=== PATIENT | female | born 1995 | race Caucasian/White ===

== ENCOUNTER 2017-08-31 15:29 | Emergency (ER) | payer BC ==
[~2017-08-31] VITALS: Ht 160 cm; Wt 68.0 kg
[~2017-08-31 15:29] MED LIST: CYCL5TAB PO; IBUP600T16 PO
[2017-08-31 16:04] LABS: BACTERIA,URINE 0 /HPF (0-FEW); BILIRUBIN,URINE NEG (NEG); CLARITY,URINE CLEAR; COLOR,URINE STRAW; GLUCOSE,URINE NEG (NEG); NITRITE,URINE NEG (NEG); UROBILINOGEN,URINE 0.2 mg/dL (0.2 mg/dL); WBC,URINE OCC /HPF (0-4)
--- NOTE | 2017-08-31 16:08 | PHYS DOC ---
Past History Past Medical History: No Pertinent History Past Surgical History: No Surgical History Smoking: Non-smoker Alcohol Use: None Drug Use: None Adult General Chief Complaint Chief Complaint: VAGINAL BLEEDING HPI HPI Patient is a 21-year-old who is approximately 6 weeks presents with vaginal bleeding this morning. She also is having some low back and low abdominal discomfort. She states they bleeding intensified after intercourse this morning. She denies any fever chills or sweats. She is unsure what her blood type is. She states she has not had an ultrasound as of yet.[] Review of Systems Review of Systems Constitutional: Denies fever or chills [] Eyes: Denies change in visual acuity, redness, or eye pain [] HENT: Denies nasal congestion or sore throat [] Respiratory: Denies cough or shortness of breath [] Cardiovascular: No additional information not addressed in HPI [] GI: Per history of present illness[] : Vaginal bleeding[] Musculoskeletal: Denies back pain or joint pain [] Integument: Denies rash or skin lesions [] Neurologic: Denies headache, focal weakness or sensory changes [] Endocrine: Denies polyuria or polydipsia [] All other systems were reviewed and found to be within normal limits, except as documented in this note. Allergies Allergies Allergies Coded Allergies Type Severity Reaction Last Updated Verified No Known Allergies Allergy Unknown 07/07/14 No Physical Exam Physical Exam Constitutional: Well developed, well nourished, no acute distress, non-toxic appearance. [] HENT: Normocephalic, atraumatic, bilateral external ears normal, oropharynx moist, no oral exudates, nose normal. [] Eyes: PERRLA, EOMI, conjunctiva normal, no discharge. [] Neck: Normal range of motion, no tenderness, supple, no stridor. [] Cardiovascular:Heart rate regular rhythm, no murmur [] Lungs & Thorax: Bilateral breath sounds clear to auscultation [] Abdomen: Bowel sounds normal, soft, no tenderness, no masses, no pulsatile masses. [] Skin: Warm, dry, no erythema, no rash. [] Back: No tenderness, no CVA tenderness. [] Extremities: No tenderness, no cyanosis, no clubbing, ROM intact, no edema. [] Neurologic: Alert and oriented X 3, normal motor function, normal sensory function, no focal deficits noted. [] Psychologic: Affect normal, judgement normal, mood normal. [] Current Patient Data Lab Results Laboratory Tests Test 08/31/17 14:57 08/31/17 15:40 POC Urine HCG, Qualitative hcg positive (Negative) Urine Collection Type Unknown Urine Color Straw Urine Clarity Clear Urine pH 7.0 Urine Specific [place] 1.010 Urine Protein Neg (NEG-TRACE) Urine Glucose (UA) Neg mg/dL (NEG) Urine Ketones (Stick) Neg mg/dL (NEG) Urine Blood Mod (NEG) Urine Nitrite Neg (NEG) Urine Bilirubin Neg (NEG) Urine Urobilinogen Dipstick 0.2 mg/dL (0.2 mg/dL) Urine Leukocyte Esterase Neg (NEG) Urine RBC 6-10 /HPF (0-2) Urine WBC Occ /HPF (0-4) Urine Squamous Epithelial Cells None /LPF Urine Bacteria 0 /HPF (0-FEW) Urine Test Pending EKG EKG [] Radiology/Procedures Radiology/Procedures FINDINGS: The uterus measures 9.0 x 6.0 x 4.2 cm. There is a circumscribed gestational sac within the fundus of the uterus or within the fundal endometrium with the gestational sac diameter of 0.52 cm compatible with a gestational age of 5 weeks 2 days. There is no suspicious uterine mass. Endometrium is within normal limits. Right ovary measures 1.5 by site right ovary measures 2.2 x 1.5 x 3.7 cm. Left ovary measures 2.2 x 2.2 x 2.2 cm. Arterial and venous waveform identified bilaterally. Small volume simple free fluid is identified within the pelvis. IMPRESSION: 1. A gestational sac is identified within the uterus without yolk sac or embryo. Mean sac diameter is compatible with a gestational age of 5 weeks and 2 days. Findings favor early intrauterine . However, short-term follow-up beta hCG is recommended to assess for failure given the provided beta hCG value. Course & Med Decision Making Course & Med Decision Making Pertinent Labs and Imaging studies reviewed. (See chart for details) [ED course: Evaluation reveals a 21-year-old proximal like 5 or 6 weeks with a quantitative hCG of only 136. She did have bleeding today. I talked with the patient her mother and her significant other about what this means. I let them know that I was very concerned that this was a miscarriage. However we would do the ultrasound I let them know that we would likely not see much. She hasn't appointment with an neurophysiologist as scheduled and will need to follow-up as scheduled there for recheck. Also let her know that she would need to return should the pain intensified. I will be checking this case out to Dr. Trejo at 1700. 18:45: Ultrasound results are reviewed. The patient has a gestational sac in the uterus. There is no pole present. HCG is 16. Plan is for discharge home. The patient is agreeable. All of her results are reviewed and all of her questions are answered prior to discharge. She is advised to use pelvic rest. She will contact her primary OB doctor tomorrow morning to schedule a repeat hCG level in 4 days. During the interim, she is advised to come back to the ER for any lightheadedness, dizziness, bleeding that soaks more than 1 pad per hour for 3 consecutive hours or fever. Patient verbalizes understanding of these return precautions. Dragon Disclaimer Dragon Disclaimer This electronic medical record was generated, in whole or in part, using a voice recognition dictation system. Departure Departure: Referrals: ARIELA FRAGOSO MD (PCP) GERMAN BONILLA DO Aug 31, 2017 16:08 LEIGHTON TREJO DO Aug 31, 2017 18:46
[2017-08-31 16:10] LABS: U PREG PATIENT POSITIVE (NEG)
[2017-08-31 16:22] LABS: BASO % 1 % (0-3); EOS # 0.2 x10^3/uL (0.0-0.7); EOS % 3 % (0-3); HEMATOCRIT 39.9 % (36.0-47.0); HEMOGLOBIN 13.5 g/dL (12.0-15.5); LYMPH # 1.4 x10^3/uL (1.0-4.8); LYMPH % 19 % (24-48); MEAN CORPUSCULAR HEMOGLOBIN 28 pg (25-35); MEAN CORPUSCULAR HGB CONC 34 g/dL (31-37); MEAN CORPUSCULAR VOLUME 82 fL (79-100); MONO # 0.6 x10^3/uL (0.0-1.1); MONO % 8 % (0-9); NEUT # 5.4 x10^3uL (1.8-7.7); NEUT % 70 % (31-73); PLATELET COUNT 152 x10^3/uL (140-400); RED BLOOD COUNT 4.87 x10^6/uL (3.50-5.40); RED CELL DISTRIBUTION WIDTH 12.9 % (11.5-14.5); WHITE BLOOD COUNT 7.7 x10^3/uL (4.0-11.0)
[2017-08-31 18:25] VITALS: BP 116/72
--- NOTE | 2017-08-31 18:33 | RAD ---
Obstetric pelvic ultrasound 08/31/2017 INDICATION: B HCG 136. Bleeding and cramping. COMPARISON: None available. TECHNIQUE: Transabdominal and transvaginal imaging of the pelvis is performed utilizing grayscale, color Doppler and spectral waveform analysis. FINDINGS: The uterus measures 9.0 x 6.0 x 4.2 cm. There is a circumscribed gestational sac within the fundus of the uterus or within the fundal endometrium with the gestational sac diameter of 0.52 cm compatible with a gestational age of 5 weeks 2 days. There is no suspicious uterine mass. Endometrium is within normal limits. Right ovary measures 1.5 by site right ovary measures 2.2 x 1.5 x 3.7 cm. Left ovary measures 2.2 x 2.2 x 2.2 cm. Arterial and venous waveform identified bilaterally. Small volume simple free fluid is identified within the pelvis. IMPRESSION: 1. A gestational sac is identified within the uterus without yolk sac or embryo. Mean sac diameter is compatible with a gestational age of 5 weeks and 2 days. Findings favor early intrauterine . However, short-term follow-up beta hCG is recommended to assess for failure given the provided beta hCG value. Electronically signed by: Tia Morrow MD (08/31/2017 6:30 PM) [facility]
== END 2017-08-31 18:40 | disposition home or self-care (01) ==
LOC: ER 15:29
DX: O46.91 Antepartum hemorrhage, unspecified, first trimester (principal); Z3A.01 Less than 8 weeks gestation of pregnancy
CPT/HCPCS: 36415; 76801; 76817; 81001; 81025; 84702; 85025; 86900; 86901; 99285-25

== ENCOUNTER 2017-12-04 13:12 | Emergency (ER) | payer BC ==
[~2017-12-04] VITALS: Ht 160 cm; Wt 67.5 kg
[2017-12-04] MEDS ORDERED: IV NORMAL SALINE 1,000ML 1,000 ML IV ONE ×2 (13:45→14:00)
[2017-12-04 13:56] LABS: PREG TEST PT QUAL POSITIVE (NEG)
[2017-12-04 14:04] LABS: ALBUMIN 3.9 g/dL (3.4-5.0); CALCIUM 8.8 mg/dL (8.5-10.1); CREATININE 0.7 mg/dL (0.6-1.0); GFR 105.6; POTASSIUM 3.7 mmol/L (3.5-5.1); TOTAL BILIRUBIN 0.5 mg/dL (0.2-1.0)
--- NOTE | 2017-12-04 14:10 | EKG ---
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
--- NOTE | 2017-12-04 14:20 | PHYS DOC ---
Past History Past Medical History: Asthma, Depression, Other Past Surgical History: Other Smoking: Non-smoker Alcohol Use: None Drug Use: None Adult General Chief Complaint Chief Complaint: POST-OP PROBLEM HPI HPI 22-year-old female who had a D&C today at [facility] outpatient surgery due to loss of heartbeat. She reports this was an intrauterine . She has mild cramping in the lower pelvis and she was at the pharmacy today when she had a syncopal episode. Prior to the syncopal episode, she felt mildly lightheaded and nauseous. She denies any pain. She denies vomiting today. She was able to take oral intake after her surgery. Review of systems is negative for chest pain shortness of breath. Positive for abdominal pain. Negative for headache. All other review of systems is negative unless otherwise noted in history of present illness. ED course: 22-year-old female presenting to the emergency department today with syncope after having a D&C. On arrival the patient is afebrile with a normal heart rate. She is well-appearing on examination. Regular rate and rhythm. Clear lungs bilaterally. Otherwise no signs of DVT in the lower legs. EKG obtained and reviewed by myself shows sinus rhythm with a regular rate. ST segments congruent. No evidence of Brugada, [id number], QT is within normal limits, no signs of hypertrophic obstructive cardiomyopathy. blood work sent. White blood cell count is just above the reference range of normal. Platelets are just below the reference range of normal. Chemistry panel shows mild mild hyperglycemia. test is positive, patient was and this is why the patient needed a D&C. D-dimer is elevated. CT angiogram is negative. Urinalysis not suggestive of infection. Otherwise CAT scan of the abdomen shows endometrial enlargement. Patient is having mild vaginal bleeding. Ultrasound shows heterogenous endometrium compatible with blood products. I spoke with Dr. Lin who is on-call for Dr. Tanner. She is [employer]FORM[employer] STOCK CLERK on-call at [facility] where the patient had surgery. The patient is hemodynamically doing quite well and does not show any signs of shock. Her pain is better she is able to walk in the emergency department without any lightheadedness. TRANSFORMER STOCK CLERK recommends discharge versus observation depending on the patient's preference. I explained the risks and benefits of both to the patient and we used shared should decision making. Patient understands risks and benefits and has medical decision making capacity.The patient has been examined and was not found to have an emergency medical condition. The patient was then discharged home in stable condition to follow up with TRANSFORMER STOCK CLERK tomorrow. They were to return if their symptoms worsened or if they were concerned for any reason. They were also instructed to return to the emergency department if they were unable to get the recommended and appropriate follow-up. [id number] discharge instructions and return precautions were given. Patient's questions were answered to their satisfaction. Patient is comfortable with plan. Review of Systems Review of Systems SEE ABOVE. Current Medications Current Medications Current Medications Medications (Trade) Dose Ordered Sig/Yane Start Time Stop Time Status Last Admin Dose Admin Sodium Chloride 1,000 ml @ 1,000 mls/hr 1X ONCE 12/04/17 14:00 12/04/17 14:59 Allergies Allergies Allergies Coded Allergies Type Severity Reaction Last Updated Verified tramadol Allergy Unknown 12/04/17 Yes Physical Exam Physical Exam SEE ABOVE Constitutional: Well developed, well nourished, no acute distress, non-toxic appearance. [] HENT: Normocephalic, atraumatic, bilateral external ears normal, oropharynx moist, no oral exudates, nose normal. [] Eyes: PERRLA, EOMI, conjunctiva normal, no discharge. [] Neck: Normal range of motion, no tenderness, supple, no stridor. [] Cardiovascular:Heart rate regular rhythm, no murmur [] Lungs & Thorax: Bilateral breath sounds clear to auscultation [] Abdomen: Bowel sounds normal, soft, no tenderness, no masses, no pulsatile masses. [] Skin: Warm, dry, no erythema, no rash. [] Back: No tenderness, no CVA tenderness. [] Extremities: No tenderness, no cyanosis, no clubbing, ROM intact, no edema. [] Neurologic: Alert and oriented X 3, normal motor function, normal sensory function, no focal deficits noted. [] Psychologic: Affect normal, judgement normal, mood normal. [] Current Patient Data Vital Signs Vital Signs Date Time Temp Pulse Resp B/P (MAP) Pulse Ox O2 Delivery O2 Flow Rate FiO2 12/04/17 13:13 68 18 98 Room Air Lab Results Laboratory Tests Test 12/04/17 13:31 Serum Test, Qualitative Positive (NEG) EKG EKG [] Radiology/Procedures Radiology/Procedures [] Course & Med Decision Making Course & Med Decision Making Pertinent Labs and Imaging studies reviewed. (See chart for details) [] Dragon Disclaimer Dragon Disclaimer This electronic medical record was generated, in whole or in part, using a voice recognition dictation system. Departure Departure: Impression: Primary Impression: Syncope Disposition: 01 HOME, SELF-CARE Condition: STABLE Referrals: ARIELA FRAGOSO MD (PCP) Patient Instructions: Syncope Additional Instructions: Thank you for allowing us to participate in your care today. Be sure to drink lots of fluids and follow-up with your TRANSFORMER STOCK CLERK tomorrow. Return to the emergency department you have any new or worsening symptoms, or if you are concerned for any reason. Return to emergency department if you have any new or concerning symptoms including but not limited to fever, chills, nausea, vomiting, intractable pain, any new rashes, chest pain, shortness of air , uncontrolled bleeding, difficulty breathing, and/or vision loss. Call your Primary Doctor tomorrow and inform them of your visit today. If you do not have a primary care provider we are happy to provide you with a list of our primary care providers contact information. This condition should be evaluated by your primary care physician and any recommended consulting services for continued management within 2-3 days after discharge. If at any time, you are having difficulty getting into your primary care doctor or a specialist, return to the emergency department. TAMEKA KC MD Dec 04, 2017 14:20
[2017-12-04 14:33] LABS: DIRECT BILIRUBIN 0.1 mg/dL (0.0-0.2)
[2017-12-04 14:43] LABS: BILIRUBIN,URINE NEG (NEG); CLARITY,URINE CLEAR; COLOR,URINE YELLOW; GLUCOSE,URINE NEG (NEG); NITRITE,URINE NEG (NEG); UROBILINOGEN,URINE 1 mg/dL (0.2 mg/dL)
[2017-12-04 14:44] LABS: BACTERIA,URINE FEW /HPF (0-FEW)
[2017-12-04] MEDS ORDERED: IOHEXOL 300 MG/ML 75 ML VIAL. IV ONE (14:45)
[2017-12-04 15:26] LABS: BASO % 0 % (0-3); EOS % 0 % (0-3); HEMATOCRIT 38.1 % (36.0-47.0); HEMOGLOBIN 12.9 g/dL (12.0-15.5); LYMPH # 0.5 x10^3/uL (1.0-4.8); LYMPH % 4 % (24-48); MEAN CORPUSCULAR HEMOGLOBIN 28 pg (25-35); MEAN CORPUSCULAR HGB CONC 34 g/dL (31-37); MEAN CORPUSCULAR VOLUME 82 fL (79-100); MONO # 0.1 x10^3/uL (0.0-1.1); MONO % 1 % (0-9); NEUT # 11.6 x10^3uL (1.8-7.7); NEUT % 95 % (31-73); PLATELET COUNT 120 x10^3/uL (140-400); RED BLOOD COUNT 4.64 x10^6/uL (3.50-5.40); RED CELL DISTRIBUTION WIDTH 12.8 % (11.5-14.5); WHITE BLOOD COUNT 12.2 x10^3/uL (4.0-11.0)
--- NOTE | 2017-12-04 15:41 | RAD ---
EXAM: CT angiography of the chest with intravenous contrast. HISTORY: Elevated d-dimer. Pain. Recent miscarriage with D&C. TECHNIQUE: Computed tomographic images of the chest were obtained following the administration of 75 cc Omnipaque 300 intravenous contrast according to angiography protocol. Multiplanar reformatting was performed and 3-dimensional maximum intensity projection images were obtained. *One or more of the following individualized dose reduction techniques were utilized for this examination: 1. Automated exposure control. 2. Adjustment of the mA and/or kV according to patient size. 3. Use of iterative reconstruction technique. COMPARISON: None. FINDINGS: There is no convincing pulmonary embolism. There is no aortic aneurysm or dissection. There is increased soft tissue within the anterior mediastinum due to residual thymus, within normal limits for patient age. There are prominent hilar lymph nodes without significant lymphadenopathy. There is no pneumothorax or pleural effusion. There is no infiltrate or suspicious pulmonary nodule. There is a calcified granuloma with adjacent small pleural-based opacity within the medial right upper lobe likely due to pleural parenchymal scarring. There is a prominent collateral vessel between the spleen and left kidney, not formally assessed on this exam. There is no suspicious osseous lesion. IMPRESSION: 1. No convincing pulmonary embolism or alternative acute thoracic finding. 2. Suspected small focus of pleural parenchymal scarring or healed granulomatous disease within the medial right upper lobe. Electronically signed by: Carmen Lennon MD (12/04/2017 3:38 PM) [place] [id number]
--- NOTE | 2017-12-04 16:15 | RAD ---
CT ABD PELV W/ IV CONTRST ONLY Indication: ELEVATED D-DIMER, ABDOMINAL PAIN, CRAMPING, PT HAD MISCARRIAGE, PT HAD D&C TODAY. 75MLS OMNI 300 IV CONTRAST Exposure: One or more of the following individualized dose reduction techniques were utilized for this examination: 1. Automated exposure control 2. Adjustment of the mA and/or kV according to patient size 3. Use of iterative reconstruction technique. Comparison: None are available. Contrast: Intravenous contrast was given. No oral contrast per request. FINDINGS: Lower thorax: Lung bases are clear. Liver: Unremarkable Spleen: Unremarkable Pancreas: Unremarkable Adrenals: No evidence of mass. Kidneys: No obvious mass. Urinary tracts: No hydronephrosis. Gallbladder: No calcified stone Lymph nodes: No significant enlargement There is some prominent vascular structures around the upper pole left kidney, may represent varices. Vessels: * Aorta: Nonaneurysmal * Major aortic branches: Grossly patent. * Portal venous: Patent GI tract: No evidence of acute colitis. No evidence of bowel obstruction. Appendix is not clearly visualized. Reproductive organs: The uterus is enlarged. There is extensive thickening of the endometrium with heterogeneous tissue. The endometrium measures 6.5 cm wide. There is an irregular walled structure in the right adnexa likely a collapsing right ovarian cyst measuring 17 mm. Urinary bladder: Unremarkable. Peritoneum: No evidence of pneumoperitoneum. No free fluid. Abdominal wall:Unremarkable Spine: No acute findings. Bones: No destructive process identified. IMPRESSION: 1. Severe endometrial enlargement or distention. Considerations include endometrial hemorrhage or hematoma, or other etiology such as endometritis or endometrial mass. 2. Prominent vascular structures around the superior pole of the left kidney, may represent varices. Electronically signed by: Chuck Phoenix MD (12/04/2017 4:11 PM) [id number]
--- NOTE | 2017-12-04 16:48 | RAD ---
Ultrasound pelvis 12/04/2017 INDICATION: History of dilatation and curettage. COMPARISON: CT abdomen/pelvis 12/04/2017. TECHNIQUE: Multiple sonographic images of the pelvis were obtained utilizing transabdominal and transvaginal imaging. Grayscale, color Doppler and spectral waveform analysis were utilized. FINDINGS: The uterus measures 11.4 x 8.2 x 6.4 cm. The endometrium measures 51 mm in maximal thickness. Heterogeneous echogenicity is identified within the endometrium without internal vascularity. Findings are most suggestive of blood products. Small volume free fluid is identified within the pelvis. No suspicious myometrial mass is visualized. Left ovary measures 2.3 x 1.7 x 2.4 cm. The right ovary measures 2.3 x 2.3 x 2.4 cm. Ovaries are not described. No suspicious adnexal masses are identified. Arterial and venous waveform identified bilaterally at the time of imaging. IMPRESSION: Significantly thickened and heterogeneous endometrium is compatible with blood products. Differential consideration would include retained products of conception, however provided the history of dilatation and curettage, this seems unlikely. No internal vascularity is identified to suggest an underlying vascular malformation. Small volume simple free fluid is identified within the pelvis. Electronically signed by: Tia Morrow MD (12/04/2017 4:45 PM) [id number]
[2017-12-04 17:13] VITALS: BP 124/61
== END 2017-12-04 17:28 | disposition home or self-care (01) ==
LOC: ER 13:12
DX: R55 Syncope and collapse (principal); R10.2 Pelvic and perineal pain; R73.9 Hyperglycemia, unspecified; R79.1 Abnormal coagulation profile; J45.909 Unspecified asthma, uncomplicated; F32.9 Major depressive disorder, single episode, unspecified; Z88.6 Allergy status to analgesic agent
CPT/HCPCS: 36415; 71275; 74177; 76830; 76856; 80048; 80076; 81001; 84703; 85025; 85379; 93005; 96360; 96361; 99285; Q9967; J7030